=== PATIENT | male | born 1970 | race American Indian/Alaskan Native ===

== ENCOUNTER 2017-09-08 11:58 | Emergency (ER) | payer OTHER ==
[2017-09-08 13:21] LABS: Basophils % (Auto) 0.5 % (0.0-1.8); Eosinophils % (Auto) 0.1 % (0.0-4.3); Hematocrit 39.7 % (35.5-45.6); Hemoglobin 12.9 gm/dl (11.8-15.2); Lymphocytes % (Auto) 19.2 % (13.4-35.0); Mean Corpuscular HGB Conc 33 % (32-34); Mean Corpuscular Volume 80 fl (84-94); Monocytes # (Auto) 0.7 K/mm3 (0.0-0.8); Monocytes % (Auto) 13.9 % (0.0-7.3); Platelet Count 148 K/mm3 (140-440); Red Blood Count 4.99 M/mm3 (3.65-5.03); Red Cell Distribution Width 14.1 % (13.2-15.2)
[2017-09-08 13:26] LABS: Mean Corpuscular Hemoglobin 26 pg (28-32)
[2017-09-08 13:42] LABS: Alanine Aminotransferase 19 units/L (7-56); Albumin 4.5 g/dL (3.9-5); BUN/Creatinine Ratio 12; Blood Urea Nitrogen 14 mg/dL (9-20); Calcium 9.5 mg/dL (8.4-10.2); Hemolysis Index 6
--- NOTE | 2017-09-09 10:31 | Emergency Department Report ---
ED General Adult HPI - General Chief complaint: Dizziness Stated complaint: FLU LIKE SYMPTOMS Time Seen by Provider: 09/09/17 10:22 Source: patient Mode of arrival: Ambulatory Limitations: No Limitations - History of Present Illness Initial comments: Patient complains of generalized weakness. He states he went to work and felt dizzy. He did not black out. Although the triage note states states blacking out or periods of time when he stands too long, the patient clearly states he never lost consciousness nor did he feel like he was going to do so. He states he thinks that he had a chill 2 days ago. He's been coughing and sometimes produces brown sputum. He did not know he had a fever. He's had no recent travel, no chest discomfort and no dyspnea. He's had no leg pain or swelling. He states he felt like these have a little at this time he is essentially asymptomatic. He denies a history of any significant medical problems. He states he has had a negative HIV test within the last 2 years. He does not take any daily medication. -: Gradual, days(s) Severity scale (0 -10): 0 Associated Symptoms: cough, weakness Treatments Prior to Arrival: none - Related Data Previous Rx's Medication Instructions Recorded Last Taken Type Azithromycin [Zithromax Z-WARD] 250 mg PO DAILY #6 tablet 09/09/17 Unknown Rx Allergies Allergy/AdvReac Type Severity Reaction Status Date / Time No Known Allergies Allergy Unverified 09/08/17 12:14 ED Review of Systems ROS: Stated complaint: FLU LIKE SYMPTOMS Other details as noted in HPI Constitutional: weakness. denies: chills, fever Eyes: denies: eye pain, eye discharge, vision change ENT: denies: ear pain, throat pain Respiratory: cough. denies: shortness of breath, wheezing Cardiovascular: denies: chest pain, palpitations Endocrine: no symptoms reported Gastrointestinal: denies: abdominal pain, nausea, diarrhea Genitourinary: denies: urgency, dysuria Musculoskeletal: denies: back pain, joint swelling, arthralgia Skin: denies: rash, lesions Neurological: denies: headache, weakness, paresthesias Psychiatric: denies: anxiety, depression Hematological/Lymphatic: denies: easy bleeding, easy bruising ED Past Medical Hx - Past Medical History Previous Medical History?: No - Surgical History Past Surgical History?: No - Social History Smoking Status: Never Smoker Substance Use Type: None - Medications Home Medications: Home Medications Medication Instructions Recorded Confirmed Last Taken Type Azithromycin [Zithromax Z-WARD] 250 mg PO DAILY #6 tablet 09/09/17 Unknown Rx ED Physical Exam - General Limitations: No Limitations General appearance: alert, in no apparent distress - Head Head exam: Present: atraumatic, normocephalic - Eye Eye exam: Present: normal appearance, PERRL, EOMI. Absent: scleral icterus - ENT ENT exam: Present: mucous membranes moist - Neck Neck exam: Present: normal inspection. Absent: tenderness, meningismus - Respiratory Respiratory exam: Present: normal lung sounds bilaterally. Absent: respiratory distress - Cardiovascular Cardiovascular Exam: Present: regular rate, normal rhythm. Absent: systolic murmur, diastolic murmur, rubs, gallop - GI/Abdominal GI/Abdominal exam: Present: soft, normal bowel sounds. Absent: distended, tenderness, guarding, rebound, rigid - Rectal Rectal exam: Present: deferred - Extremities Exam Extremities exam: Present: normal inspection - Back Exam Back exam: Present: normal inspection - Neurological Exam Neurological exam: Present: alert, oriented X3, CN II-XII intact. Absent: motor sensory deficit - Psychiatric Psychiatric exam: Present: normal affect, normal mood - Skin Skin exam: Present: warm, dry, intact, normal color. Absent: rash ED Course Vital Signs 09/08/17 09/09/17 09/09/17 12:14 01:58 06:53 Temperature 100.1 F H 98.7 F 99.1 F Pulse Rate 94 H 86 78 Respiratory 20 16 15 Rate Blood Pressure 129/80 119/82 Blood Pressure 115/65 [Left] O2 Sat by Pulse 95 97 97 Oximetry 09/09/17 08:30 Temperature Pulse Rate 76 Respiratory 18 Rate Blood Pressure Blood Pressure 102/59 [Left] O2 Sat by Pulse 93 Oximetry - Reevaluation(s) Reevaluation #1: He is given IV fluid. He is appropriate for outpatient management and follow- up. 09/09/17 12:12 ED Medical Decision Making - Lab Data Result diagrams: 09/08/17 13:08 09/08/17 13:08 Laboratory Results - last 24 hr 09/08/17 09/08/17 13:08 13:08 WBC 5.2 RBC 4.99 Hgb 12.9 Hct 39.7 MCV 80 L MCH 26 L MCHC 33 RDW 14.1 Plt Count 148 Lymph % (Auto) 19.2 Evans % (Auto) 13.9 H Eos % (Auto) 0.1 Baso % (Auto) 0.5 Lymph # 1.0 L Evans # 0.7 Eos # 0.0 Baso # 0.0 Seg Neutrophils % 66.3 Seg Neutrophils # 3.4 Sodium 143 Potassium 4.7 Chloride 99.2 Carbon Dioxide 30 Anion Gap 19 BUN 14 Creatinine 1.2 Estimated GFR > 60 BUN/Creatinine Ratio 12 Glucose 102 H Calcium 9.5 Total Bilirubin 0.30 AST 26 ALT 19 Alkaline Phosphatase 42 Total Protein 7.9 Albumin 4.5 Albumin/Globulin Ratio 1.3 Critical care attestation.: If time is entered above; I have spent that time in minutes in the direct care of this critically ill patient, excluding procedure time. ED Disposition Clinical Impression: Viral respiratory illness, Volume depletion Disposition: DC-01 TO HOME OR SELFCARE Is pt being admited?: No Does the pt Need Aspirin: No Condition: Stable Instructions: Viral Syndrome (ED), Dehydration (ED) Additional Instructions: Increase fluids and rest. If you continue to have a significant cough Rx for antibiotic. Follow-up with the primary care doctor. Prescriptions: Azithromycin [Zithromax Z-WARD] 250 mg PO DAILY #6 tablet Referrals: PRIMARY CAREMD [Primary Care Provider] - 3-5 Days [facility] [Provider Group] - 2-3 Days Time of Disposition: 12:13
[2017-09-09] MEDS ORDERED: NACL 0.9% 1000 ML 1,000 ML IV ONE (10:36)
--- NOTE | 2017-09-09 11:30 | XRay Report ---
ROUTINE CHEST, TWO VIEWS: HISTORY: Cough. The trachea, heart, mediastinal contour, lung keene and bony thorax are unremarkable. IMPRESSION: Unremarkable chest x-ray.
[2017-09-09 12:38] VITALS: BP 130/77
== END 2017-09-09 12:37 | disposition home or self-care (01) ==
LOC: ED 11:58
DX: J06.9 Acute upper respiratory infection, unspecified (principal); E86.9 Volume depletion, unspecified
CPT/HCPCS: 36415; 71046; 80053; 85025; 93005; 93010; 96360; 99284; J7030